=== PATIENT | female | born 1985 | race Caucasian/White ===

== ENCOUNTER 2016-11-22 20:08 | Emergency (ER) | payer OTHER ==
[~2016-11-22] VITALS: Ht 177.8 cm; Wt 144.7 kg
[2016-11-22 20:52] LABS: HEMATOCRIT 38.8 % (36.0-46.0); MCH 28.5 PG (29.0-34.0); MCHC 32.7 G/DL (30.0-36.0); MEAN PLAT.VOLUME 9.7 uM^3 (9.5-12.4); PLATELET COUNT 217 K/uL (156-360); RBC DIS.WIDTH-CV 11.8 % (11.8-14.6); RBC DIS.WIDTH-SD 37.8 % (39-53); RED BLOOD COUNT 4.46 M/uL (3.80-5.20); WHITE BLOOD COUNT 7.6 K/uL (4.1-10.2)
[2016-11-22 21:03] LABS: CHLORIDE 104 mEq/L (99-109); POTASSIUM 3.4 mEq/L (3.7-5.4); SODIUM 142 mEq/L (136-147)
[2016-11-22 21:06] LABS: GLUCOSE 95 mg/dL (70-99)
[2016-11-22 21:07] LABS: ANION GAP 13 MEQ/L (2-14); TOTAL BILIRUBIN 0.5 mg/dL (0.0-1.0)
[2016-11-22 21:09] LABS: ALKALINE PHOSPHATASE 66 IU/L (3-129)
[2016-11-22 21:10] LABS: UREA NITROGEN (BUN) 15 mg/dL (9-23)
[2016-11-22 21:13] LABS: GFR ESTIMATE (CALCULATED) > 59 mL/min/
[2016-11-22 21:15] LABS: ADD MIUA? YES; BILIRUBIN NEGATIVE; BLOOD SMALL; COLOR AMBER ((YELLOW)); GLUCOSE (STRIP) NEGATIVE; KETONES NEGATIVE; LEUKOCYTES NEGATIVE; NITRITE NEGATIVE; PROTEIN (STRIP) 30; SPECIFIC GRAVITY 1.027 (1.000-1.030); UROBILINOGEN 0.2 MG/DL (0.2-1.0)
[2016-11-22 21:18] LABS: QUANTITATIVE HCG < 4.0 MIU/ML
[2016-11-22] MEDS ORDERED: PROTONIX40 MG PO (21:23)
[2016-11-22] MEDS ORDERED: SINGULAIR10 MG PO (21:23)
[2016-11-22] MEDS ORDERED: ZYRTEC10 M2 PO (21:23)
[2016-11-22] MEDS ORDERED: FLONASE16 G1 BOTH NARES (21:23)
[2016-11-22] MEDS ORDERED: CYANOCOBALAM1000 MCG PO (21:24)
[2016-11-22] MEDS ORDERED: AZELASTINE137 MCG/0. BOTH NARES (21:24)
[2016-11-22] MEDS ORDERED: MEGA BIOTIN10000 MCG PO (21:24)
[2016-11-22] MEDS ORDERED: IRON325 M1 PO (21:24)
[2016-11-22] MEDS ORDERED: CALCIUM CITRAT250 MG PO (21:25)
[2016-11-22] MEDS ORDERED: LEXAPRO20 MG PO (21:25)
[2016-11-22] MEDS ORDERED: VITAMIN D35000 UNIT PO (21:25)
[2016-11-22] MEDS ORDERED: VISTARIL50 MG PO (21:26)
[2016-11-22] MEDS ORDERED: VENTOLIN HFA18 GM IH (21:26)
[2016-11-22] MEDS ORDERED: EPIPEN ADU0.3 MG/0.3 IM (21:26)
[2016-11-22 21:43] LABS: RED BLOOD CELLS 0-5 /HPF (0-5)
[2016-11-22 21:44] LABS: BACTERIA 3+ /HPF; CALCIUM OXALATE CRYSTALS 2+ /HPF; CASTS NONE SEEN /LPF; CRYSTALS PRESENT; EPITHELIAL CELLS 3+ /HPF; MUCUS 1+ /LPF; UCUL ADDED? YES
[2016-11-23] MEDS ORDERED: NORCO 5/3251 TABLET PO (01:02)
[2016-11-23] MEDS ORDERED: BENTYL20 MG PO (01:02)
[2016-11-23 01:29] VITALS: BP 102/71
== END 2016-11-23 01:30 | disposition home or self-care (01) ==
LOC: EME 20:08
DX: R10.84 Generalized abdominal pain (principal); R11.2 Nausea with vomiting, unspecified; I88.0 Nonspecific mesenteric lymphadenitis; Z98.890 Other specified postprocedural states; Z98.84 Bariatric surgery status; R82.71 Bacteriuria; K80.20 Calculus of gallbladder without cholecystitis without obstruction; K76.0 Fatty (change of) liver, not elsewhere classified; K44.9 Diaphragmatic hernia without obstruction or gangrene; Z87.891 Personal history of nicotine dependence
CPT/HCPCS: 74177; 80053; 81003; 84702; 85027; 87086; 99281; 99285; J1200; J2270; J2405; J3010; J7030

== ENCOUNTER 2017-03-10 22:08 | Emergency (ER) | payer OTHER ==
[~2017-03-10] VITALS: Ht 177.8 cm; Wt 145.1 kg
[~2017-03-10 22:08] MED LIST: AZELASTINE137 MCG/0. BOTH NARES; BENTYL20 MG PO; CALCIUM CITRAT250 MG PO; COMPAZINE25 M1 PR; CYANOCOBALAM1000 MCG PO; EPIPEN ADU0.3 MG/0.3 IM; FLONASE16 G1 BOTH NARES; IRON325 M1 PO; LEXAPRO20 MG PO; MEGA BIOTIN10000 MCG PO; NORCO 5/3251 TABLET PO; PROTONIX40 MG PO; REGLAN10 MG PO; SINGULAIR10 MG PO; VENTOLIN HFA18 GM IH; VISTARIL50 MG PO; VITAMIN D35000 UNIT PO; ZYRTEC10 M2 PO
[2017-03-11 00:59] LABS: HEMATOCRIT 36.3 % (36.0-46.0); MCHC 33.1 G/DL (30.0-36.0); MCV 87.7 FL (83-99); PLATELET COUNT 251 K/uL (156-360); RBC DIS.WIDTH-CV 12.6 % (11.8-14.6); RBC DIS.WIDTH-SD 40.4 % (39-53); RED BLOOD COUNT 4.14 M/uL (3.80-5.20); WHITE BLOOD COUNT 8.3 K/uL (4.1-10.2)
[2017-03-11 01:07] LABS: ALBUMIN 3.8 g/dL (3.2-4.8)
[2017-03-11 01:08] LABS: CHLORIDE 103 mEq/L (99-109); POTASSIUM 3.8 mEq/L (3.7-5.4); SODIUM 137 mEq/L (136-147)
[2017-03-11 01:10] LABS: GLUCOSE 94 mg/dL (70-99); TOTAL PROTEIN 6.5 g/dL (6.4-8.3)
[2017-03-11 01:12] LABS: TOTAL BILIRUBIN 0.3 mg/dL (0.0-1.0)
[2017-03-11 01:13] LABS: ALKALINE PHOSPHATASE 65 IU/L (3-129)
[2017-03-11 01:14] LABS: CREATININE 0.7 mg/dL (0.6-1.3); GFR ESTIMATE (CALCULATED) > 59 mL/min/
[2017-03-11 01:15] LABS: AST (GOT) 14 IU/L (2-34); UREA NITROGEN (BUN) 14 mg/dL (9-23)
[2017-03-11 01:16] LABS: ALT (GPT) 13 IU/L (3-49)
[2017-03-11 01:20] LABS: TROP-I INTERPRETATION NEGATIVE; TROPONIN-I < 0.01 ng/mL (0.0-0.30)
[2017-03-11] MEDS ORDERED: PERCOCET 5/31 TABLET PO (03:03)
[2017-03-11] MEDS ORDERED: FLEXERIL10 MG PO (03:03)
[2017-03-11 03:26] VITALS: BP 126/74
== END 2017-03-11 03:26 | disposition home or self-care (01) ==
LOC: EME 22:08
PROVIDERS: Physician Assistant
DX: S39.012A Strain of muscle, fascia and tendon of lower back, initial encounter (principal); T40.2X5A Adverse effect of other opioids, initial encounter; Z88.8 Allergy status to other drugs, medicaments and biological substances
CPT/HCPCS: 72100; 80053; 84484; 85027; 93005; 99281; 99285; J1200; J2270; J2405; J7030; S0028

== ENCOUNTER 2017-07-08 20:07 | Emergency (ER) | payer OTHER ==
[~2017-07-08] VITALS: Ht 177.8 cm; Wt 145.6 kg
[~2017-07-08 20:07] MED LIST changes: +FLEXERIL10 MG PO; +PERCOCET 5/31 TABLET PO
[2017-07-08 21:15] LABS: HEMATOCRIT 40.5 % (36.0-46.0); HEMOGLOBIN 13.1 G/DL (11.9-15.5); MCH 28.9 PG (29.0-34.0); MCHC 32.3 G/DL (30.0-36.0); MCV 89.4 FL (83-99); PLATELET COUNT 277 K/uL (156-360); RBC DIS.WIDTH-CV 12.1 % (11.8-14.6); RBC DIS.WIDTH-SD 39.7 % (39-53); RED BLOOD COUNT 4.53 M/uL (3.80-5.20); WHITE BLOOD COUNT 7.2 K/uL (4.1-10.2)
[2017-07-08 21:23] LABS: APPEARANCE CLOUDY ((CLEAR)); BILIRUBIN NEGATIVE; BLOOD SMALL; COLOR YELLOW ((YELLOW)); GLUCOSE (STRIP) NEGATIVE; KETONES NEGATIVE; LEUKOCYTES SMALL; NITRITE NEGATIVE; PROTEIN (STRIP) 30; SPECIFIC GRAVITY 1.027 (1.000-1.030); UROBILINOGEN 0.2 MG/DL (0.2-1.0)
[2017-07-08 21:27] LABS: BACTERIA NONE SEEN /HPF; CALCIUM OXALATE CRYSTALS 3+ /HPF; EPITHELIAL CELLS 3+ /HPF; MUCUS 1+ /LPF; UCUL ADDED? YES; WHITE BLOOD CELLS TNTC /HPF (0-5)
[2017-07-08 21:29] LABS: ALBUMIN 4.5 G/DL (3.2-4.8); CHLORIDE 104 MEQ/L (99-109); SODIUM 139 MEQ/L (136-147); TOTAL BILIRUBIN 0.3 MG/DL (0.0-1.0)
[2017-07-08 21:35] LABS: ALKALINE PHOSPHATASE 63 IU/L (3-129); ALT (GPT) 14 IU/L (3-49); AST (GOT) 15 IU/L (2-34); CREATININE 0.8 MG/DL (0.6-1.3); GFR ESTIMATE (CALCULATED) > 59 mL/min/; GLUCOSE 92 mg/dL (70-99); TOTAL PROTEIN 7.4 G/DL (6.4-8.3); UREA NITROGEN (BUN) 10 mg/dL (9-23)
[2017-07-08 21:39] LABS: MAGNESIUM 2.1 mg/dl (1.3-2.7)
[2017-07-08 21:45] LABS: LIPASE 27 U/L (1.0-51.0)
[2017-07-08 22:04] LABS: QUANTITATIVE HCG < 4.0 MIU/ML
[2017-07-09] MEDS ORDERED: MOTRIN800 MG PO (02:09)
[2017-07-09] MEDS ORDERED: LORTAB 5-325 M1 EACH PO (02:09)
[2017-07-09] MEDS ORDERED: CIPRO500 MG PO (02:09)
[2017-07-09] MEDS ORDERED: COMPAZINE25 M1 PR (02:24)
[2017-07-09] MEDS ORDERED: REGLAN10 MG PO (02:24)
[2017-07-09] MEDS ORDERED: ZOFRAN ODT4 MG PO (02:24)
[2017-07-09 02:56] VITALS: BP 96/47
== END 2017-07-09 03:03 | disposition home or self-care (01) ==
LOC: EME 20:07
DX: N12 Tubulo-interstitial nephritis, not specified as acute or chronic (principal); Z90.49 Acquired absence of other specified parts of digestive tract; Z98.84 Bariatric surgery status; Z88.8 Allergy status to other drugs, medicaments and biological substances
CPT/HCPCS: 74177; 80053; 81003; 83690; 83735; 84702; 85027; 87077; 87086; 87186; 99281; 99285; J0696; J2405; J2765; J3010; J7040; J7050